=== PATIENT | female | born 1990 | race African-American/Black ===

== ENCOUNTER 2019-08-04 17:41 | Inpatient (IN) | payer MEDICAID, OTHER, SELFPAY ==
[~2019-08-04] VITALS: Ht 144.8 cm; Wt 57.1 kg
[~2019-08-04 17:41] MED LIST: MACR100 PO; SLOWK8 PO; VENL-67 PO
[2019-08-04 18:23] LABS: BASOPHILS % (AUTO) 1.1 % (0.0-2.0); EOSINOPHILS % (AUTO) 1.1 % (1.0-6.0); HEMATOCRIT 39.7 % (36-46); HEMOGLOBIN 13.1 g/dL (12.0-16.0); LYMPHOCYTES # (AUTO) 1.9 K/uL (1.0-4.8); LYMPHOCYTES % (AUTO) 26.7 % (22.0-44.0); MEAN CORPUSCULAR HEMOGLOBIN 31.9 pg (26.0-34.0); MEAN CORPUSCULAR HGB CONC 33.1 G/dL (31.0-37.0); MEAN CORPUSCULAR VOLUME 97 fL (80-100); MONOCYTES # (AUTO) 0.5 K/uL (0.1-1.0); MONOCYTES % (AUTO) 6.7 % (2.0-9.0); NEUTROPHILS # (AUTO) 4.5 K/uL (1.8-7.7); NEUTROPHILS % (AUTO) 64.4 % (40.0-70.0); PLATELET COUNT (AUTO) 298 K/uL (150-450); RED BLOOD CELL COUNT(AUTO) 4.12 MIL/uL (4.00-5.20); RED CELL DISTRIBUTION WIDTH 13.2 % (11.5-14.5)
[2019-08-04 18:47] LABS: ALANINE AMINOTRANSFERASE 22 U/L (12-78); ALBUMIN 3.9 g/dL (3.4-5.0); ALKALINE PHOSPHATASE 92 U/L (46-116); ANION GAP 9 mmol/L (8-16); ASPARTATE AMINOTRANSFERASE 20 U/L (15-37); BILIRUBIN,TOTAL 0.2 mg/dL (0.1-1.0); CALCIUM, TOTAL 9.3 mg/dL (8.8-10.5); CARBON DIOXIDE 27 mmol/L (22-29); CHLORIDE 101 mmol/L (98-107); CREATININE 0.78 mg/dL (0.60-1.30); GLOMERULAR FILTR. RATE CALC > 60 mL/min (>60); GLUCOSE,RANDOM 90 mg/dL (70-110); HCG,QUANTITATIVE < 1 mIU/mL (0-6); POTASSIUM 3.4 mmol/L (3.5-5.1); SODIUM SERUM 137 mmol/L (136-145); TOTAL PROTEIN, SERUM 8.5 g/dL (6.4-8.2)
[2019-08-04 18:54] LABS: UREA NITROGEN, BLOOD 10 mg/dL (7-18)
[2019-08-04] MEDS ORDERED: ZOLPIDEM TARTRATE 10 MG TABLET PO PRN (19:30)
[2019-08-04] MEDS ORDERED: HALOPERIDOL 5 MG TABLET PO PRN (19:30)
[2019-08-04 19:48] LABS: AMPHET/METH SCREEN,URINE NEGATIVE (NEGATIVE); BARBITURATE SCREEN, URINE NEGATIVE (NEGATIVE); BENZODIAZEPINES SCREEN,URINE NEGATIVE (NEGATIVE); CANNABINOID SCREEN,URINE NEGATIVE (NEGATIVE); COCAINE SCREEN,URINE NEGATIVE (NEGATIVE); METHADONE SCREEN, URINE NEGATIVE (NEGATIVE); OPIATE SCREEN,URINE NEGATIVE (NEGATIVE)
[2019-08-04 19:52] LABS: PHENCYCLIDINE SCREEN,URINE NEGATIVE (NEGATIVE)
[2019-08-04] MEDS ORDERED: POTASSIUM CHLORIDE 20 MEQ ER TABLET PO ONE (20:00)
[2019-08-05] MEDS ORDERED: ACETAMINOPHEN 500 MG TABLET PO ONE (03:45)
[2019-08-05 05:14] LABS: CHOLESTEROL 207 mg/dL (131-200); HDL CHOLESTEROL 68 mg/dL (40-60); LDL CHOL (CALC.) 129 mg/dL (0-130); TRIGLYCERIDES 52 mg/dL (15-150)
[2019-08-05 09:23] VITALS: BP 121/84
[2019-08-05] MEDS ORDERED: MAGNESIUM HYDROXIDE SUSPENSION 30 ML UDCUP PO PRN (11:30)
[2019-08-05] MEDS ORDERED: GuaiFENesin/D-METHORPHAN [SUGAR-FREE] 200-20MG/10 ML SYRUP UDCUP PO PRN (11:30)
[2019-08-05] MEDS ORDERED: ACETAMINOPHEN 325 MG TABLET PO PRN (11:30)
[2019-08-05] MEDS ORDERED: ONDANSETRON HCL 4 MG TABLET PO PRN (11:30)
[2019-08-05] MEDS ORDERED: PETROLATUM,WHITE 28 GM JELLY TP PRN (11:30)
[2019-08-05] MEDS ORDERED: ALBUTEROL SULFATE HFA 90 MCG/PUFF 8 GM INHALER IH PRN (11:30)
[2019-08-05] MEDS ORDERED: CloNIDine HCL 0.1 MG TABLET PO PRN (11:30)
[2019-08-05] MEDS ORDERED: MAG HYDROX/AL HYDROX/SIMETH ES 30 ML SUSPENSION UDCUP PO PRN (11:30)
[2019-08-05] MEDS ORDERED: IBUPROFEN 400 MG TABLET PO PRN (11:30)
[2019-08-05] MEDS ORDERED: LOPERAMIDE HCL 2 MG CAPSULE PO PRN (11:30)
[2019-08-05] MEDS ORDERED: DOCUSATE SODIUM 100 MG CAPSULE PO PRN (11:30)
[2019-08-05] MEDS ORDERED: NICOTINE 14 MG/24 HOUR PATCH TD PRN (11:30)
[2019-08-05] MEDS: VENLAFAXINE HCL 75 MG ER CAPSULE PO SCH (11:35)
[2019-08-05] MEDS: LevETIRAcetam 250 MG TABLET PO SCH (16:40)
[2019-08-05 16:43] VITALS: BP 120/80
[2019-08-05] MEDS: LORazepam 2 MG TABLET PO PRN (18:52)
[2019-08-06 06:52] VITALS: BP 122/80
[2019-08-06 08:37] VITALS: BP 118/76
[2019-08-06] MEDS: LevETIRAcetam 250 MG TABLET PO SCH ×2 (09:03→16:44)
[2019-08-06] MEDS: VENLAFAXINE HCL 75 MG ER CAPSULE PO SCH (09:03)
[2019-08-06 16:23] VITALS: BP 112/72
[2019-08-06] MEDS: LORazepam 2 MG TABLET PO PRN (20:47)
[2019-08-07 06:16] VITALS: BP 112/70
[2019-08-07 08:22] VITALS: BP 115/68
[2019-08-07] MEDS: LevETIRAcetam 250 MG TABLET PO SCH ×2 (08:24→16:30)
[2019-08-07] MEDS: VENLAFAXINE HCL 75 MG ER CAPSULE PO SCH (08:24)
[2019-08-07 16:31] VITALS: BP 122/72
[2019-08-07] MEDS: LORazepam 2 MG TABLET PO PRN (17:47)
[2019-08-07] MEDS ORDERED: LEVE250T2 PO (20:36)
[2019-08-08 00:21] VITALS: BP 133/77
[2019-08-08] MEDS: LevETIRAcetam 250 MG TABLET PO SCH (08:05)
[2019-08-08] MEDS: VENLAFAXINE HCL 75 MG ER CAPSULE PO SCH (08:05)
[2019-08-08 08:13] VITALS: BP 134/76
== END 2019-08-08 10:00 | disposition home or self-care (01) | DRG 751 ==
LOC: EMS 17:45 → B2S 08-05 05:17
PROVIDERS: ADMIT Psychiatry & Neurology Psychiatry; ATTEND Psychiatry & Neurology Psychiatry
DX: F33.2 Major depressive disorder, recurrent severe without psychotic features (principal); R45.851 Suicidal ideations; S81.812A Laceration without foreign body, left lower leg, initial encounter; G40.909 Epilepsy, unspecified, not intractable, without status epilepticus; E78.5 Hyperlipidemia, unspecified; E87.6 Hypokalemia; J45.909 Unspecified asthma, uncomplicated; X58.XXXA Exposure to other specified factors, initial encounter; F10.10 Alcohol abuse, uncomplicated; F41.9 Anxiety disorder, unspecified; F19.10 Other psychoactive substance abuse, uncomplicated; F60.3 Borderline personality disorder; Y90.2 Blood alcohol level of 40-59 mg/100 ml; Z71.41 Alcohol abuse counseling and surveillance of alcoholic; Y93.89 Activity, other specified; Y92.89 Other specified places as the place of occurrence of the external cause; Y99.8 Other external cause status; Z91.19 Patient's noncompliance with other medical treatment and regimen; Z91.5 Personal history of self-harm; Z91.018 Allergy to other foods; Z88.5 Allergy status to narcotic agent
CPT/HCPCS: 84132; G0480